=== PATIENT | female | born 1980 | race Caucasian/White ===

== ENCOUNTER 2021-03-30 10:02 | Emergency (ER) | payer OTHER ==
[~2021-03-30] VITALS: Ht 152.4 cm; Wt 60.8 kg
[2021-03-30] MEDS ORDERED: NORVASC5 MG PO ×2 (10:19→11:19)
[2021-03-30 10:47] LABS: HEMATOCRIT 42.2 % (37.0-47.0); HEMOGLOBIN 14.3 gm/dL (12.0-15.0); MCH 30.7 pg (26.0-34.0); MCHC 33.8 g/dL (28.0-37.0); MPV 8.2 fl. (7.2-11.1); RBC 4.64 mil/uL (4.20-5.00); RDW-CV 13.6 % (10.5-14.5); WBC 5.4 thou/uL (4.0-11.0)
[2021-03-30 10:54] LABS: CALCIUM 8.7 mg/dL (8.5-10.1); CREATININE 0.9 mg/dL (0.6-1.3)
[2021-03-30] MEDS ORDERED: AUGMENTIN 875-1 EACH PO (11:19)
[2021-03-30] MEDS ORDERED: TESSALON PERLE100 M1 PO (11:19)
[2021-03-30 11:30] VITALS: BP 135/85
== END 2021-03-30 11:30 | disposition home or self-care (01) ==
LOC: M.ERS 10:02
PROVIDERS: Emergency Medicine Emergency Medical Services
DX: J40 Bronchitis, not specified as acute or chronic (principal); I10 Essential (primary) hypertension